=== PATIENT | male | born 1950 ===

== ENCOUNTER 2024-11-02 06:20 | Day surgery (SDC) | payer OTHER, SELFPAY | END 2024-11-02 13:48 | disposition home or self-care (01) | LOC: GI 06:20 | PROVIDERS: ATTENDING PHYSICIAN Internal Medicine Gastroenterology | DX: Z12.11 Encounter for screening for malignant neoplasm of colon (principal); K64.8 Other hemorrhoids; Q43.8 Other specified congenital malformations of intestine; R12 Heartburn; K44.9 Diaphragmatic hernia without obstruction or gangrene; K31.7 Polyp of stomach and duodenum; K22.89 Other specified disease of esophagus | CPT/HCPCS: 43239; G0121; 88305 ==

== ENCOUNTER → 2025-01-15 07:53 | Outpatient (REF) | payer OTHER, SELFPAY | LOC: MRI 07:53 | PROVIDERS: ATTENDING PHYSICIAN Orthopaedic Surgery; FAMILY PHYSICIAN Student in an Organized Health Care Education/Training Program | DX: T85.192D Other mechanical complication of implanted electronic neurostimulator of spinal cord electrode (lead), subsequent encounter (principal); M54.50 Low back pain, unspecified | CPT/HCPCS: 70360; 71046; 72148; 76014; 76015 ==